=== PATIENT | female | born 1980 | race Caucasian/White ===

== ENCOUNTER 2022-11-19 08:56 | Emergency (ER) | payer MEDICARE, OTHER ==
[~2022-11-19] VITALS: Ht 157.5 cm; Wt 97.5 kg
[~2022-11-19 08:56] MED LIST: ALBUTEROL; METHYLNALTREXONE SQ; Z.0.AMBIEN10 MG PO; Z.0.CLONAZEPAM2 MG PO; Z.0.LEVAQUIN500 MG PO; Z.0.OXYCODONE HCL30 PO; Z.0.PREDNISONE2.5 MG PO; Z.0.WELLBUTRIN XL150 PO; [UNRECOGNIZED DRUG - OTHER]; [UNRECOGNIZED DRUG - OTHER]; [UNRECOGNIZED DRUG - OTHER] PO; [UNRECOGNIZED DRUG - OTHER] PO
[2022-11-19 09:20] LABS: BASOPHILS % 0.6 % (0.0-1.0); EOSINOPHILS # (AUTO) 0.2 (0.0-0.4); EOSINOPHILS % 3.5 % (0.0-6.0); HEMATOCRIT 42.3 % (34.2-44.1); HEMOGLOBIN 14.1 g/dL (12.0-16.0); LYMPHOCYTES # (AUTO) 2.4 (1.0-3.2); LYMPHOCYTES % 34.4 % (18.0-39.1); MEAN CORPUSCULAR HGB CONC 33.3 g/dL (31-35); MONOCYTES # (AUTO) 0.5 (0.2-0.8); MONOCYTES % 7.8 % (4.4-11.3); NEUTROPHILS # (AUTO) 3.7 (2.1-6.9); NEUTROPHILS % 53.6 % (38.7-80.0); PLATELET COUNT 257 x10e3/uL (140-360); RED BLOOD COUNT 4.55 x10e6/uL (3.6-5.1); RED CELL DISTRIBUTION WIDTH 12.3 % (11.7-14.4)
[2022-11-19 09:45] LABS: LIPASE 51 U/L (8-78)
[2022-11-19 09:47] LABS: ALBUMIN 4.1 g/dL (3.5-5.0); ALBUMIN/GLOBULIN RATIO 1.2 (0.8-2.0); CALCIUM 9.3 mg/dL (8.4-10.2); CREATININE, SERUM 0.74 mg/dL (0.57-1.11)
[2022-11-19 10:58] VITALS: BP 119/74
== END 2022-11-19 10:45 | disposition home or self-care (01) ==
LOC: ER 09:00
DX: R07.9 Chest pain, unspecified (principal); R50.9 Fever, unspecified; F32.A Depression, unspecified; F41.9 Anxiety disorder, unspecified; G47.00 Insomnia, unspecified
CPT/HCPCS: 36415; 71045; 80053; 83690; 84484; 85025; 93005; 94760; 99284

== ENCOUNTER 2024-11-24 12:24 | Emergency (ER) | payer MEDICARE ==
[~2024-11-24] VITALS: Ht 157.5 cm; Wt 82.7 kg
[2024-11-24] MEDS ORDERED: VENTOLIN HFA18 GM INH (12:50)
[2024-11-24] MEDS ORDERED: FAMOTIDINE20 MG PO (12:50)
[2024-11-24] MEDS ORDERED: EPINEPHRIN0.3 MG/0.3 SQ (12:50)
[2024-11-24] MEDS ORDERED: PREDNISONE20 MG PO (12:50)
[2024-11-24] MEDS ORDERED: FEXOFENADINE H180 MG PO (12:50)
[2024-11-24] MEDS: FAMOTIDINE 20 MG/2 ML VIAL IV STA (12:58)
[2024-11-24] MEDS: METHYLPREDNISOLONE SOD SUCC 40 MG/ML VIAL 1ML IV ONE (12:58)
[2024-11-24 12:59] VITALS: PULSE 99; RESP 18
[2024-11-24] MEDS: ALBUTEROL/IPRATROPIUM 3 ML NEB NEB ONE (12:59)
[2024-11-24] MEDS: SODIUM CHLORIDE 0.9% 500ML 500 ML IV STA (13:00)
[2024-11-24 13:14] VITALS: PULSE 80; RESP 18; TEMP 98.3; O2SAT 100
== END 2024-11-24 13:34 | disposition home or self-care (01) ==
LOC: FSED 12:39
DX: R53.81 Other malaise (principal); J39.2 Other diseases of pharynx; T78.1XXA Other adverse food reactions, not elsewhere classified, initial encounter; R05.9 Cough, unspecified; G47.00 Insomnia, unspecified; F41.9 Anxiety disorder, unspecified; F32.A Depression, unspecified
CPT/HCPCS: 96374; 99283; J2919; J7040